=== PATIENT | male | born 1995 | race Caucasian/White ===

== ENCOUNTER 2016-09-11 08:11 | Emergency (ER) | payer OTHER ==
[~2016-09-11] VITALS: Ht 165.1 cm; Wt 59.5 kg
[~2016-09-11 08:11] MED LIST: DENIES
[2016-09-11 08:12] VITALS: Ht 165.1 cm; Wt 59.5 kg
--- NOTE | 2016-09-11 08:27 | ERD ---
ER Documentation Chief Complaint Date/Time DATE: 09/11/16 TIME: 08:23 Chief Complaint Pain/swelling/redness of 1st toe on left foot x 2 weeks HPI 21-year-old male presents emergency department for left first toe lateral swelling and tenderness for 2 weeks. Denies headache, loss of consciousness, dizziness, blurry vision, changes in vision, photophobia, facial pain, ear pain, throat pain, difficulty swallowing, neck pain, shoulder pain, chest pain, cough, hemoptysis, abdominal pain, back pain, loss of appetite, nausea, vomiting, hematochezia, diarrhea, constipation, urinary symptoms, bladder and bowel incontinences, extremity weakness, extremity tenderness, numbness or tingling sensation, difficulty walking, recent travel, recent exposure to illness, recent antibiotic use in the last 3 months, fever, chills. Allergy: Sulfa. PMH: ADHD. Medications: Adderall 20 mg as needed. Surgery: Denies. Family history: Noncontributory. Primary Social History: Not working at this time. Denies smoking, use of alcohol, use of illegal drugs. ROS All systems reviewed and are negative except as per history of present illness. Medications Home Meds Active Scripts Cephalexin* (Keflex*) 500 Mg Capsule, 500 MG PO TID for 5 Days, CAP Prov:PASILABAN,CLIFFAR F 09/11/16 Hydrocodone/Acetaminophen ([place] 5-325 Tablet) 1 Each Tablet, 1 TAB PO Q6H Y for PAIN, #7 TAB Prov:PASILABAN,CLIFFAR F 09/11/16 Ibuprofen* (Motrin*) 600 Mg Tab, 600 MG PO Q8H Y for PAIN, #20 TAB Prov:PASILABAN,KLAR F 09/11/16 Reported Medications [Denies] No Conflict Check 11/23/09 Allergies Allergies: Coded Allergies: Sulfa (Sulfonamide Antibiotics) (Verified Allergy, Mild, RASH, 09/11/16) PMhx/Soc History of Surgery: No Anesthesia Reaction: No Hx Neurological Disorder: No Hx Respiratory Disorders: No Hx Cardiac Disorders: No Hx Psychiatric Problems: Yes (ADHD, LEARNING DISORDER) Hx Miscellaneous Medical Probl: Yes (ADHD) Hx Alcohol Use: No Hx Substance Use: No Hx Tobacco Use: No Smoking Status: Never smoker Physical Exam Vitals Vital Signs Date Time Temp Pulse Resp B/P Pulse Ox O2 Delivery O2 Flow Rate FiO2 09/11/16 08:12 98.1 90 16 138/84 97 Physical Exam CONSTITUTIONAL: Well-appearing; well-nourished; in no apparent distress. HEAD: Normocephalic; atraumatic. EYES: Conjunctiva clear, sclera non-icteric, EOM intact. PERRL Ears: Hearing intact. EACs clear, TMs non-bulging, non-inflamed, translucent & mobile, ossicles normal appearance, No obstructions, no erythema, no discharges Nose: No obstructions. No polyps. No external lesions. Mucosa non-inflamed. No external lesions, septum and turbinates normal. No rhinorrhea. No discharges. Frontal sinus is non-tender to palpation. Maxillary sinus is non-tender to palpation. MOUTH: Moist mucous membranes, no lesion, no obstructions, no vesicles, no thrush, patent airway Throat: Uvula in midline. Right tonsil is +1 with no erythema, no exudate. Left tonsil is +1 with no erythema, no exudate. Tolerating secretions well. Good gag reflex. Patent airway. Neck: Supple, without lesions, bruits, or adenopathy. No mass. Thyroid non- enlarged and non-tender to palpation. CHEST: Symmetrical chest. Respirations even and not labored. No retractions noted. CARDIOVASCULAR: Normal S1, S2. RRR. No murmurs, gallops. RESPIRATORY: Normal chest excursion with respiration; breath sounds clear and equal bilaterally; no wheezes, rhonchi, or rales. Breathing even and unlabored. Speaking in clear, full, and complete sentences w/ ease. ABDOMEN: Normal bowel sounds normal. Soft, round, non-distended, non-guarding, no tenderness, no rebound, no organomegaly, no masses, no pulsating abdominal mass. No hernia. No peritoneal signs. : No CVA tenderness. BACK: Symmetrical shoulder. Spine is midline without deformity, tenderness. No evidence of trauma or deformity. PELVIS: Stable pelvis. No evidence of trauma or deformity. MUSCULOSKELETAL: Normal gait and station. No misalignment, asymmetry, crepitation, defects, tenderness, masses, effusions, decreased range of motion, instability, atrophy or abnormal strength or tone in the head, neck, spine, ribs , pelvis or extremities. Left lateral first toe has swelling tenderness to palpation. No evidence of trauma. No calf tenderness. NEUROVASCULAR: Distal pulses are present. Pedal pulse are present, equal, and normal. Capillary refills are < 2 seconds. NEUROLOGIC: Alert and oriented x4. Speaks full and clear sentences. Cranial Nerves II-XII normal. Sensation to pain, touch, and proprioception normal. Grossly unremarkable. No neurologic deficits. Romberg test is negative. PSYCHOLOGICAL: The patients mood and manner are appropriate. No hallucinations , delusions. Not SI. Not HI. Has the capacity to decide for self SKIN: Normal for age and ethnicity; warm; dry; good turgor; no apparent lesions or exudates. No rashes, hives, discoloration. Intact. Results 24 hrs Current Medications Medications (Trade) Dose Ordered Sig/Awilda Route PRN Reason Start Time Stop Time Status Last Admin Dose Admin Acetaminophen/ Hydrocodone Bitart ([place] (10/325)) 1 tab ONCE ONCE PO 09/11/16 08:30 09/11/16 08:31 DC 09/11/16 08:36 Lidocaine (Xylocaine 1% (Mdv) 20 ml) 20 ml ONCE ONCE SC 09/11/16 08:30 09/11/16 08:31 DC Bacitracin (Bacitracin Oint (Ud)) 1 applic ONCE ONCE TOP 09/11/16 09:00 09/11/16 09:00 DC 09/11/16 08:57 Procedures/MDM Examination: Please see physical examination. Disease process, medical treatment was explained to the patient and family member. They verbalized understanding and agreed with the diagnostic tests, medical treatment, and follow-up care. Treatment: Rowlett. Procedure: Left partial ingrown toenail removal. Betadine. Lidocaine 1% 4 cc digital block to left first/great toe. Lateral partial toenail removal. Bleeding controlled. Re-evaluation: Patient tolerated the procedure well. No neurovascular deficits. No active bleeding. No discharges. No numbness or tingling sensation. Consultation: None. Differential diagnosis: Ingrown, partial toenail removal Medical decision makin-year-old male presents emergency department for left first toe lateral swelling and tenderness for 2 weeks. Patient's complaint , patient's history about his complaint, my physical findings, my procedure, my reevaluation after the treatment and procedure are consistent with my final diagnosis of left first/great toe ingrown with ingrown toenail removal. Medications prescribed are the following: Keflex. Motrin. Rowlett. Patient and family member are made aware of the side effects and adverse reactions of the medications prescribed. Instructed on when to seek emergent and medical attention in case allergic/anaphylactic reactions or severe side effects and or adverse reactions to medications. Patient and family member verbalized understanding. Patient instructed Instructed to follow-up with his PCP in 24-48 hours. Come back in 2 days for wound check. Instructed to Call 911 for chest pain, shortness of breath. Advised to come back here in ED as soon as possible for severity of symptoms which includes but not limited to: any new symptoms; shortness of breath/difficulty of breathing; cardiovascular changes; severe gastrointestinal symptoms; signs and symptoms of bleeding and or infection; signs of compartment syndrome/neurovascular changes; neurological changes/deficits. Patient and family member verbalized understanding. Upon discharge, patient is alert and oriented x 4, speaks full and clear sentences, denies pain, has no neurological deficits, has no neurovascular deficits, difficulty of breathing. Breathing even and unlabored. Lung sounds are clear to auscultation. Not in distress. Appears comfortable. Ambulatory with steady gait. Appears satisfied with care provided here in ED. Departure Diagnosis: Primary Impression: Nail problem Additional Impressions: Ingrown left big toenail Ingrown left greater toenail Ingrown toenail Condition: Stable Additional Instructions: Instructed to follow-up with his PCP in 24-48 hours. Come back in 2 days for wound check. Instructed to Call 911 for chest pain, shortness of breath. Advised to come back here in ED as soon as possible for severity of symptoms which includes but not limited to: any new symptoms; shortness of breath/difficulty of breathing; cardiovascular changes; severe gastrointestinal symptoms; signs and symptoms of bleeding and or infection; signs of compartment syndrome/neurovascular changes; neurological changes/deficits. Patient and family member verbalized understanding. ROSALINO ELLIOTT Sep 11, 2016 08:27
[2016-09-11] MEDS ORDERED: LIDOCAINE 1% (MDV) 20 ML INJ SC ONE (08:30)
[2016-09-11] MEDS ORDERED: HYDROCODONE/APAP (10/325) TAB PO ONE (08:30)
[2016-09-11] MEDS ORDERED: IBUP-1542 PO (08:52)
[2016-09-11] MEDS ORDERED: HYDR-906 PO (08:52)
[2016-09-11] MEDS ORDERED: CEPH-443 PO (08:52)
[2016-09-11] MEDS ORDERED: BACITRACIN 0.9 GM OINT TOP ONE (09:00)
== END 2016-09-11 08:57 | disposition home or self-care (01) ==
LOC: FTE 08:11
DX: L60.0 Ingrowing nail (principal)
CPT/HCPCS: 11765; Z7502; Z7610

== ENCOUNTER 2017-08-10 08:27 | Emergency (ER) | END 2017-08-10 10:47 | disposition home or self-care (01) ==

== ENCOUNTER 2018-08-08 08:50 | Emergency (ER) | payer OTHER ==
[~2018-08-08] VITALS: Ht 167.6 cm; Wt 59.0 kg
[~2018-08-08 08:50] MED LIST changes: +CEPH-443 PO; +CYCL10TA7 PO; +HYDR-4011 PO; +IBUP-1542 PO
[2018-08-08 09:05] VITALS: BP 130/81; PULSE 81; RESP 18; Ht 167.6 cm; Wt 59.0 kg
[2018-08-08] MEDS ORDERED: IBUPROFEN 800 MG TAB PO ONE (10:00)
[2018-08-08] MEDS ORDERED: NAPR-985 PO (10:28)
--- NOTE | 2018-08-08 10:45 | ERD ---
ER Documentation Chief Complaint Chief Complaint left ankle pain with chronic left ankle injury HPI 23-year-old male presenting with pain to his left ankle. Patient states that he sustained an injury 2 years ago after slipping and falling. He never followed up with his doctor and feels that his ankle has healed inappropriately. He has increased pain and was unable to follow-up with his PMD. He missed his appointment 4 days ago. He has been taking naproxen which alleviates his pain however ran out. Denies numbness or tingling and denies any recent traumatic injuries. Denies medical problems. NKDA. Surgical history denies. Social history denies ROS All systems reviewed and are negative except as per history of present illness. Medications Home Meds Active Scripts Naproxen* (Naprosyn*) 500 Mg Tablet, 500 MG PO BID PRN for PAIN AND/OR INFLAMMATION, #30 TAB Prov:CHAVEZ URIARTEC 08/08/18 Cyclobenzaprine Hcl* (Cyclobenzaprine Hcl*) 10 Mg Tablet, 10 MG PO QHS, #7 TAB Prov:VAIBHAV RACHEL PA-C 08/10/17 Cephalexin* (Keflex*) 500 Mg Capsule, 500 MG PO QID for 7 Days, CAP Prov:VAIBHAV RACHELC 08/10/17 Cephalexin* (Keflex*) 500 Mg Capsule, 500 MG PO TID for 5 Days, CAP Prov:PASILACLIFF BURGOSAR F 09/11/16 Hydrocodone/Acetaminophen ([place] 5-325 Tablet) 1 Each Tablet, 1 TAB PO Q6H PRN for PAIN, #7 TAB Prov:PASILACLIFF BURGOSAR F 09/11/16 Ibuprofen* (Motrin*) 600 Mg Tab, 600 MG PO Q8H PRN for PAIN, #20 TAB Prov:PASILABAN,KLAR F 09/11/16 Reported Medications [Denies] No Conflict Check 11/23/09 Allergies Allergies: Coded Allergies: Sulfa (Sulfonamide Antibiotics) (Verified Allergy, Mild, RASH, 08/10/17) PMhx/Soc History of Surgery: No Anesthesia Reaction: No Hx Neurological Disorder: No Hx Respiratory Disorders: No Hx Cardiac Disorders: No Hx Psychiatric Problems: Yes (ADHD, LEARNING DISORDER) Hx Miscellaneous Medical Probl: Yes (left ankle sprain) Hx Alcohol Use: Yes (occasionally) Hx Substance Use: No Hx Tobacco Use: No FmHx Family History: No diabetes, No coronary disease, No other Physical Exam Vitals Vital Signs Date Temp Pulse Resp B/P (MAP) Pulse Ox O2 O2 Flow FiO2 Time Delivery Rate 08/08/18 98.2 81 18 130/81 99 09:05 (97) Physical Exam GENERAL: The patient is well-appearing, well-nourished, in no acute distress CHEST: Clear to auscultation bilaterally. There are no rales, wheezes or rhonchi. HEART: Regular rate and rhythm. No murmurs, clicks, rubs or gallops. EXTREMITIES: Tender to palpation to left ankle. No obvious deformity. Tender inferior to the left lateral malleolus. No tenderness to the base the fifth metatarsal or proximal fibular head NEUROLOGIC: Alert and oriented. Cranial nerves II through XII intact. Motor strength in all 4 extremities with 5 out of 5 strength. Sensation grossly intact. Normal speech and gait. SKIN: There is no apparent rash or petechiae. The skin is warm and dry. Results 24 hrs Current Medications Medications Dose Sig/Awilda Start Time Status Last (Trade) Ordered Route PRN Stop Time Admin Dose Reason Admin Ibuprofen 800 mg ONCE ONCE 08/08/18 DC 08/08/18 (Motrin) PO 10:00 09:57 08/08/18 10:01 Procedures/MDM DIAGNOSTIC IMAGING REPORT Patient: MACARENA LOPEZ : 1995 Age: 23 Sex: M MR #: [id number] DOS: 08/08/18 0945 Ordering MD: MARTIN URIARTE PA-C Location: [facility] Room/Bed: PROCEDURE: XR Left Ankle CLINICAL INDICATION: Ankle pain TECHNIQUE: Standard 3 view radiographs were submitted. COMPARISON: None FINDINGS: Osseous structures: Well mineralized and intact with no fracture or destructive process identified. Joint spaces: Well maintained with no significant erosions or spurring evident. Soft tissues: Appear unremarkable. IMPRESSION: Unremarkable left ankle. MDM: 23 yr old male complaining of left ankle pain. I have low suspicion for acute fracture or dislocation. I have low suspicion for tendon or ligament injury. I have low suspicion for neuro deficit. 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 Recommended to follow up with PMD and obtain MRI if needed. Patient discharged with strict ER precautions and told to follow up with Ortho. Discharged with supportive medications. Departure Diagnosis: Primary Impression: Ankle pain Condition: Stable Patient Instructions: Sprain, Ankle, With X-Ray Referrals: OLI THOMPSON (PCP) Additional Instructions: FOLLOW UP WITH YOUR PRIMARY CARE PHYSICIAN TOMORROW.Return to this facility if you are not improving as expected. CHAVEZ URIARTE PA-C Aug 08, 2018 10:45
== END 2018-08-08 10:36 | disposition home or self-care (01) ==
LOC: FTE 08:50
DX: M25.572 Pain in left ankle and joints of left foot (principal)
CPT/HCPCS: 73610; Z7502; Z7610